=== PATIENT | female | born 1995 | race Caucasian/White ===

== ENCOUNTER 2020-11-20 10:16 | Outpatient (CLI) | payer MEDICAID ==
[2020-11-20] MEDS ORDERED: PROG100C16 PO (10:44)
[2020-11-20 11:04] LABS: BASOPHILS % (AUTO) 1 % (0-1); EOSINOPHILS % (AUTO) 2 % (1-7); LYMPHOCYTES % (AUTO) 27 % (22-44); MEAN CORPUSCULAR HEMOGLOBIN 30.9 pg (27.0-34.8); MEAN CORPUSCULAR HGB CONC 33.1 g/dL (32.4-35.8); MEAN PLATELET VOLUME 10.4 fL (7.4-10.4); MONOCYTES % (AUTO) 7 % (2-9); NEUTROPHILS % (AUTO) 63 % (42-75); PLATELET COUNT 298 x10^3/uL (130-400); RED BLOOD COUNT 4.92 x10^6/uL (3.82-5.3)
[2020-11-20 11:07] LABS: MD NO
[2020-11-20 11:14] LABS: CALCIUM 9.6 mg/dL (8.5-10.1); CREATININE 0.71 mg/dL (0.55-1.02)
[2020-11-20 11:15] LABS: INTERNATIONAL NORMALIZED RATIO 0.96 (0.93-1.1); PROTHROMBIN TIME 10.3 Seconds (9.6-11.5)
[2020-11-20 11:23] LABS: MICROSCOPIC INDICATED
[2020-11-20 11:26] LABS: ANION GAP 3 mmol/L (5-15); CHLORIDE 110 mmol/L (98-107)
== END 2020-11-20 23:59 | disposition home or self-care (01) ==
LOC: STAR 10:16
PROVIDERS: ATTEND Urology
DX: Z01.812 Encounter for preprocedural laboratory examination (principal); N20.0 Calculus of kidney; Z20.822 Contact with and (suspected) exposure to COVID-19
CPT/HCPCS: 36415; 80048; 81001; 85025; 85610; 87086; U0003

== ENCOUNTER 2020-11-25 11:25 | Outpatient (CLI) | payer MEDICAID ==
[~2020-11-25 11:25] MED LIST: PROG100C16 PO
== END 2020-11-25 23:59 | disposition home or self-care (01) ==
LOC: LAB 11:25 → RAD 23:59
PROVIDERS: ATTEND Urology
DX: N20.0 Calculus of kidney (principal); Z79.01 Long term (current) use of anticoagulants
CPT/HCPCS: 74018

== ENCOUNTER 2020-11-26 10:30 | Day surgery (SDC) | payer MEDICAID ==
[~2020-11-26] VITALS: Ht 172.7 cm; Wt 109.0 kg
[2020-11-26 11:18] LABS: HCG UR SG 1.025 (1.003-1.030)
[2020-11-26 11:26] VITALS: BP 117/83
[2020-11-26] MEDS ORDERED: CHLORHEXIDINE 15 ML UDC PO ONE (11:30)
[2020-11-26] MEDS ORDERED: LACTATED RINGERS 1,000 ML IV SCH (11:30)
[2020-11-26] MEDS ORDERED: MIDAZOLAM 1 MG/ML, 2ML ONE (12:23)
[2020-11-26] MEDS ORDERED: FENTANYL PF 250 MCG/5ML ONE (12:24)
[2020-11-26] MEDS ORDERED: DIPHENHYDRAMINE 50 MG/ML, 1ML IVPush PRN (13:00)
[2020-11-26] MEDS ORDERED: HYDROmorphone 1 MG/ML, 1ML INJ IVPush PRN (13:00)
[2020-11-26] MEDS ORDERED: OXYcodone 5 MG/5 ML ORAL.SOL UDC PO PRN (13:00)
[2020-11-26] MEDS ORDERED: METOPROLOL 1 MG/ML, 5ML IV PRN (13:00)
[2020-11-26] MEDS ORDERED: HALOPERIDOL 5 MG/ML IV PRN (13:00)
[2020-11-26] MEDS ORDERED: ALBUTEROL SULFATE 2.5 MG/3 ML NPPB PRN (13:00)
[2020-11-26] MEDS ORDERED: LABETALOL 5MG/ML, 20ML IV PRN (13:00)
[2020-11-26] MEDS ORDERED: PROMETHAZINE 25 MG/ML, 1ML IVPush PRN (13:00)
[2020-11-26] MEDS ORDERED: EPHEDRINE 50 MG/ML, 1ML IVPush PRN (13:00)
[2020-11-26] MEDS ORDERED: FENTANYL PF 100 MCG/2ML IV PRN (13:00)
[2020-11-26] MEDS ORDERED: METOCLOPRAMIDE 5 MG/ML, 2ML IVPush PRN (13:00)
[2020-11-26] MEDS ORDERED: ONDANSETRON 2MG/ML, 2ML IVPush PRN (13:00)
[2020-11-26] MEDS ORDERED: ACETAMINOPHEN 325 MG TABLET PO PRN (13:00)
[2020-11-26] MEDS ORDERED: MEPERIDINE/PF 25MG/0.5ML IVPush PRN (13:00)
[2020-11-26] MEDS ORDERED: hydrALAzine 20 MG/ML, 1ML IV PRN (13:00)
[2020-11-26] MEDS ORDERED: DIAZEPAM 5 MG/ML, 2ML IVPush PRN (13:00)
== END 2020-11-26 15:45 | disposition home or self-care (01) ==
LOC: OUT 10:30
PROVIDERS: ATTEND Urology
DX: N20.0 Calculus of kidney (principal); J45.909 Unspecified asthma, uncomplicated; F32.9 Major depressive disorder, single episode, unspecified; Z79.01 Long term (current) use of anticoagulants; Z79.899 Other long term (current) drug therapy; Z87.442 Personal history of urinary calculi; Z87.440 Personal history of urinary (tract) infections; Z88.5 Allergy status to narcotic agent; Z91.041 Radiographic dye allergy status
CPT/HCPCS: 36415; 50590; 81025; 85730; J2250; J3010; J7120

== ENCOUNTER 2020-12-11 08:42 | Emergency (ER) | payer MEDICAID ==
[~2020-12-11] VITALS: Ht 172.7 cm; Wt 106.2 kg
--- NOTE | 2020-12-11 09:00 | NUR ---
PT HAS SOB AND CHEST TIGHTNESS, HAS BEEN SICK FOR 11 DAYS. HAD ABX AND STEROID. STILL HAVING SX. COVID NEGATIVE FROM LAST WEEK.
--- NOTE | 2020-12-11 09:05 | NUR ---
REPORT RECEIVED CARE ASSUMED. DENISE DEXTER AT BEDSIDE TO EVOSCAR PT. PT WITH OCC PROD COUGH. INSPIRATORY AND EXPIRATORY WHEEZES T/O. "USUALLY MY INHALER HELPS. IT ISNT NOW. I FEEL TIGHT" NO ACUTE DISTRESS NOTED. AWAITING ORDERS.
[2020-12-11] MEDS ORDERED: ALBUTEROL/IPRATROPIUM 2.5MG/0.5MG, 3 ML ONE ×2 (09:23→09:38)
[2020-12-11] MEDS ORDERED: SODIUM CHLORIDE 0.9% 1,000ML IVBOLUS ONE (09:30)
--- NOTE | 2020-12-11 09:32 | NUR ---
PORTABLE CXR COMPLETED. TESTING MACHINE OPERATOR AT BEDSIDE. IV INFUSING WITHOUT REDNESS/SWELLING. RT TX TO BE STARTED AFTER TESTING MACHINE OPERATOR COMPLETES BLOOD DRAW
[2020-12-11] MEDS: ALBUTEROL/IPRATROPIUM 2.5MG/0.5MG, 3 ML NPPB SCH ×2 (09:35→09:57)
[2020-12-11 09:47] LABS: BASOPHILS % (AUTO) 1 % (0-1); EOSINOPHILS % (AUTO) 1 % (1-7); LYMPHOCYTES % (AUTO) 22 % (22-44); MEAN CORPUSCULAR HEMOGLOBIN 31.3 pg (27.0-34.8); MEAN CORPUSCULAR HGB CONC 34.5 g/dL (32.4-35.8); MEAN PLATELET VOLUME 10.6 fL (7.4-10.4); MONOCYTES % (AUTO) 8 % (2-9); NEUTROPHILS % (AUTO) 68 % (42-75); PLATELET COUNT 338 x10^3/uL (130-400); RED BLOOD COUNT 4.68 x10^6/uL (3.82-5.3); RED CELL DISTRIBUTION WIDTH 12.5 % (9.6-15.2)
--- NOTE | 2020-12-11 09:49 | NUR ---
PT WITH DECREASED INSPIRATORY AND EXPIRATORY WHEEZES IN UPPER LOBES. CONT EXP WHEEZES IN LOWER LOBES AFTER FIRST DUONEB TX.
[2020-12-11 09:50] LABS: MD NO
[2020-12-11 09:55] LABS: ALANINE AMINOTRANSFERASE 18 U/L (12-78); ALBUMIN 3.5 g/dL (3.4-5.0); ANION GAP 7 mmol/L (5-15); CALCIUM 9.7 mg/dL (8.5-10.1); CHLORIDE 110 mmol/L (98-107); CREATININE 0.77 mg/dL (0.55-1.02)
[2020-12-11 09:57] LABS: ALKALINE PHOSPHATASE 76 U/L (45-117); BILIRUBIN,TOTAL 0.4 mg/dL (0.2-1.0); TOTAL PROTEIN 7.8 g/dL (6.4-8.2)
--- NOTE | 2020-12-11 10:09 | NUR ---
DR FOSTER AT BEDSIDE TO EVAL PT. PT AMB, GAIT STEADY. MAINTAIN 95% RA PULSE OX. IV NS INFUSING WITHOUT REDNESS/SWELLING.
[2020-12-11] MEDS ORDERED: DOXYCYCLINE 100MG TABLET ONE (10:16)
--- NOTE | 2020-12-11 10:25 | NUR ---
PT GIVEN ABX ORDERED. PT WITH C/O "MY THROAT IS ITCHING LIKE I'M GOING TO HAVE AN ASTHMA ATTACK. CAN I GET AN ALBUTEROL INHALER? IT WILL HELP STOP THE ATTACK" DISCUSSED WITH DR FOSTER. ORDER PLACED. REQUESTED FROM PHARMACY.
--- NOTE | 2020-12-11 10:29 | NUR ---
PT PROVIDED WITH INHALER AND SELF ADMINISTERED.
[2020-12-11] MEDS ORDERED: ALBUTEROL HFA 90 MCG/SPRAY INH ONE (10:30)
[2020-12-11] MEDS ORDERED: DOXYCYCLINE 100MG TABLET PO ONE (10:30)
--- NOTE | 2020-12-11 10:58 | NUR ---
PT DENIES "ITCHING" AT THIS TIME. NO ACUTE DISTRESS NOTED. IV DC'D WITH CANNULA INTACT. REVIEWED DC INSTRUCTIONS WITH PT. UNDERSTANDING VERBALIZED.
[2020-12-11 11:00] VITALS: BP 104/71
== END 2020-12-11 11:08 | disposition home or self-care (01) ==
LOC: ED 09:37
DX: J45.30 Mild persistent asthma, uncomplicated (principal); Z20.822 Contact with and (suspected) exposure to COVID-19; J06.9 Acute upper respiratory infection, unspecified; J15.9 Unspecified bacterial pneumonia; M79.10 Myalgia, unspecified site; R05 Cough; R06.02 Shortness of breath; R00.0 Tachycardia, unspecified; J45.909 Unspecified asthma, uncomplicated; Z79.899 Other long term (current) drug therapy
CPT/HCPCS: 36415; 71045; 80053; 83605; 85025; 93005; 94640; 96360; 96361; 99285; J7030; J7512; U0003

== ENCOUNTER 2021-03-29 10:12 | Emergency (ER) | payer MEDICAID ==
[~2021-03-29] VITALS: Ht 172.7 cm; Wt 98.8 kg
[2021-03-29] MEDS ORDERED: ALBUTEROL/IPRATROPIUM 2.5MG/0.5MG, 3 ML NPPB ONE ×2 (11:00→13:30)
[2021-03-29 11:45] LABS: RAPID INFLUENZA A Negative (Negative); RAPID INFLUENZA B Negative (Negative)
--- NOTE | 2021-03-29 11:52 | NUR ---
patient to room from lobby
[2021-03-29] MEDS ORDERED: ALBUTEROL HFA 90 MCG/SPRAY INH PRN (12:30)
[2021-03-29 14:03] VITALS: BP 111/71
--- NOTE | 2021-03-29 14:10 | NUR ---
PT DRESSED AND ASKING WHERE RESTROOM IS. PT SHOWED TO RESTROOM AND INSTRUCTED TO COME BACK TO ROOM 18 FOR DISCHARGE INSTRUCTIONS PRIOR TO LEAVING.
--- NOTE | 2021-03-29 14:42 | NUR ---
PT ELOPED THROUGH LOBBY, AMBULATING STEADILY.
== END 2021-03-29 14:42 | disposition left against medical advice (07) ==
LOC: ED 13:13
DX: J45.41 Moderate persistent asthma with (acute) exacerbation (principal); Z87.891 Personal history of nicotine dependence; Z20.822 Contact with and (suspected) exposure to COVID-19
CPT/HCPCS: 71046; 87400; 94640; 99284; U0003; U0005